=== PATIENT | female | born 1995 | race Caucasian/White ===

== ENCOUNTER 2016-12-01 13:32 | Emergency (ER) | payer MEDICAID ==
[~2016-12-01] VITALS: Ht 1767 cm; Wt 92.5 kg
[2016-12-01] MEDS ORDERED: PRENATAL1 TA3 PO (14:19)
[2016-12-01 14:22] LABS: BILIRUBIN NEGATIVE (NEGATIVE); BLOOD NEGATIVE (NEGATIVE); CLARITY CLOUDY (CLEAR); COLOR YELLOW (YELLOW); GLUCOSE NEGATIVE (NEGATIVE); KETONE NEGATIVE (NEGATIVE); LEUKO ESTERASE 2+ (NEGATIVE); NITRITE NEGATIVE (NEGATIVE); PH 5.5 (5.0-9.0); PROTEIN NEGATIVE (NEGATIVE); UROBILINOGEN 0.2 E.U./dl (0.2-1.0)
[2016-12-01 14:29] LABS: EPITHELIAL CELLS 21-30; URINE REFLEX COMMENT YES (NO)
[2016-12-01 14:31] LABS: BASO % 0.2 % (0.0-1.0); EOS # 0.1 10*3/uL (0.0-0.4); EOS % 1.3 % (1.0-4.0); HEMATOCRIT 41.2 % (37.0-47.0); HEMOGLOBIN 14.1 g/dl (12.0-16.0); LYMPH # 2.2 10*3/uL (1.3-4.4); LYMPH % 23.9 % (27.0-41.0); MEAN CELL VOLUME 84.1 fl (81.0-99.0); MEAN CORPUSCULAR HGB 28.8 pg (27.0-31.0); MEAN CORPUSCULAR HGB CONC 34.2 g/dl (33.0-37.0); MEAN PLATELET VOLUME 9.3 fl (9.6-12.3); MONO # 0.8 10*3/uL (0.1-1.0); MONO % 8.8 % (3.0-9.0); NEUT % 65.6 % (47.0-73.0); PLATELET COUNT AUTOMATED 314 10*3/uL (130-400); RED CELL DISTRI WIDTH 12.4 % (0-14.5); WHITE BLOOD COUNT 9.1 10*3/uL (4.8-10.8)
[2016-12-01 14:46] LABS: ALBUMIN 3.8 gm/dl (3.1-4.5); ALKALINE PHOSPHATASE 55 U/L (45-117); BILIRUBIN, TOTAL 0.4 mg/dl (0.2-1.0); BUN 10 mg/dl (7-24); CARBON DIOXIDE 24 mmol/L (21-32); CHLORIDE 105 mmol/L (98-107); EST GLOM FILT AFRICAN AMERICAN > 60 ml/min; GLUCOSE 91 mg/dL (65-99); POTASSIUM 4.1 mmol/L (3.5-5.1); SGOT/AST 13 IU/L (3-35); SGPT/ALT 19 U/L (12-78); SODIUM 138 mmol/L (136-145)
[2016-12-01] MEDS ORDERED: OMNICEF300 MG PO (14:56)
== END 2016-12-01 15:10 | disposition home or self-care (01) ==
LOC: ED 13:32
PROVIDERS: Physician Assistant
DX: O23.41 Unspecified infection of urinary tract in pregnancy, first trimester (principal); Z3A.01 Less than 8 weeks gestation of pregnancy

== ENCOUNTER 2018-09-04 17:20 | Emergency (ER) | payer OTHER ==
[~2018-09-04] VITALS: Ht 172.7 cm; Wt 99.8 kg
[~2018-09-04 17:20] MED LIST: OMNICEF300 MG PO; PRENATAL1 TA3 PO
[2018-09-04] MEDS ORDERED: TAMIFLU 75MG CA75 MG PO (20:16)
[2019-01-20] MEDS ORDERED: PROVENTIL HFA6.7 GM INH (21:49)
[2019-01-20] MEDS ORDERED: PREDNISONE20 M1 PO (21:49)
[2019-01-20] MEDS ORDERED: CLARITIN10 MG PO (21:49)
[2019-01-20] MEDS ORDERED: MUCINEX1200 M1 PO (21:49)
== END 2018-09-04 20:40 | disposition home or self-care (01) ==
LOC: ED 17:20
DX: J10.1 Influenza due to other identified influenza virus with other respiratory manifestations (principal); R19.7 Diarrhea, unspecified; R07.89 Other chest pain; J45.909 Unspecified asthma, uncomplicated

== ENCOUNTER 2019-05-10 17:07 | Emergency (ER) | payer OTHER ==
[~2019-05-10] VITALS: Ht 172.7 cm; Wt 97.5 kg
[~2019-05-10 17:07] MED LIST changes: +CLARITIN10 MG PO; +MUCINEX1200 M1 PO; +PREDNISONE20 M1 PO; +PROVENTIL HFA6.7 GM INH; +TAMIFLU 75MG CA75 MG PO
[2019-05-10 18:31] LABS: BILIRUBIN NEGATIVE (NEGATIVE); BLOOD TRACE-INTACT (NEGATIVE); CLARITY CLOUDY (CLEAR); COLOR YELLOW (YELLOW); GLUCOSE NEGATIVE (NEGATIVE); KETONE NEGATIVE (NEGATIVE); LEUKO ESTERASE 1+ (NEGATIVE); NITRITE NEGATIVE (NEGATIVE); PH 6.5 (5.0-9.0); SPECIFIC GRAVITY 1.025 (1.005-1.030); UROBILINOGEN 0.2 E.U./dl (0.2-1.0)
[2019-05-10 18:43] LABS: BACTERIA 2+; MUCOUS 2+
[2019-05-10] MEDS ORDERED: CEPHALEXIN500 M1 PO (18:47)
== END 2019-05-10 18:54 | disposition home or self-care (01) ==
LOC: ED 17:07
PROVIDERS: Nurse Practitioner Family
DX: O26.891 Other specified pregnancy related conditions, first trimester (principal); M25.551 Pain in right hip; M25.552 Pain in left hip; O23.41 Unspecified infection of urinary tract in pregnancy, first trimester; O10.911 Unspecified pre-existing hypertension complicating pregnancy, first trimester; Z3A.09 9 weeks gestation of pregnancy; Z79.899 Other long term (current) drug therapy

== ENCOUNTER 2020-07-04 17:35 | Emergency (ER) | payer OTHER ==
[~2020-07-04] VITALS: Wt 113.4 kg
[~2020-07-04 17:35] MED LIST changes: +CEPHALEXIN500 M1 PO
== END 2020-07-04 18:47 | disposition home or self-care (01) ==
LOC: ED 17:35
DX: G89.29 Other chronic pain (principal); R10.31 Right lower quadrant pain

== ENCOUNTER 2022-10-12 14:11 | Emergency (ER) | payer OTHER ==
[~2022-10-12] VITALS: Ht 172.7 cm; Wt 104.3 kg
[2022-10-12] MEDS ORDERED: METHOCARBAMOL500 M1 PO (16:55)
[2022-10-12] MEDS ORDERED: ONDANSETRON4 MG SL (16:55)
== END 2022-10-12 17:22 | disposition home or self-care (01) ==
LOC: ED 14:11
DX: U07.1 COVID-19 (principal); M79.10 Myalgia, unspecified site; R11.0 Nausea